=== PATIENT | female | born 1955 | race Caucasian/White ===

== ENCOUNTER 2019-03-11 14:53 | Inpatient (IN) | payer MEDICARE, MEDICAID ==
[~2019-03-11] VITALS: Ht 170.2 cm; Wt 125.9 kg
[~2019-03-11 14:53] MED LIST: ACET-784 PO; ADV250 IH; ARIP10TA8 PO; ARIP5TAB8 PO; AUD NEB; BISA10SU11 PR; HEPAR25KIV SQ; HYDR-3965 PO; INSNOV SQ; LISI-661 PO; LOPE2 PO; METF-960 PO; MOM30 PO; MONT10TA21 PO; NICO14T TD; OXCA300T29 PO; PANT40TA25 PO; TOLT4CAP33 PO; ZIPR80CA2 PO; ZOLP5 PO
[2019-03-11 16:15] LABS: GLUCOSE,POINT OF CARE 250 MG/DL (70-110)
[2019-03-11] MEDS ORDERED: ASPIRIN 325 MG TABLET PO ONE (17:30)
[2019-03-11] MEDS ORDERED: ALBUTEROL SULFATE 2.5 MG/0.5 ML NEB SOLUTION NEB ONE (17:30)
[2019-03-11] MEDS ORDERED: IPRATROPIUM BROMIDE 0.5 MG/2.5 ML NEB SOLUTION NEB ONE (17:30)
[2019-03-11] MEDS ORDERED: CefTRIAXone 1 GM/DEXTROSE 50 ML IV ONE (17:30)
[2019-03-11 18:24] LABS: BASOPHILS % (AUTO) 0.6 % (0.0-2.0); EOSINOPHILS % (AUTO) 0.9 % (1.0-6.0); HEMATOCRIT 38.3 % (36-46); HEMOGLOBIN 12.5 g/dL (12.0-16.0); LYMPHOCYTES # (AUTO) 2.2 K/uL (1.0-4.8); MEAN CORPUSCULAR HEMOGLOBIN 25.4 pg (26.0-34.0); MEAN CORPUSCULAR HGB CONC 32.7 G/dL (31.0-37.0); MEAN CORPUSCULAR VOLUME 78 fL (80-100); MONOCYTES # (AUTO) 0.5 K/uL (0.1-1.0); MONOCYTES % (AUTO) 5.1 % (2.0-9.0); NEUTROPHILS # (AUTO) 7.5 K/uL (1.8-7.7); NEUTROPHILS % (AUTO) 72.4 % (40.0-70.0); PLATELET COUNT (AUTO) 264 K/uL (150-450); RED BLOOD CELL COUNT(AUTO) 4.93 MIL/uL (4.00-5.20); RED CELL DISTRIBUTION WIDTH 17.3 % (11.5-14.5)
[2019-03-11 18:33] LABS: CARBON DIOXIDE 26 mmol/L (22-29); CHLORIDE 103 mmol/L (98-107); POTASSIUM 4.3 mmol/L (3.5-5.1); SODIUM SERUM 139 mmol/L (136-145)
[2019-03-11 18:34] LABS: ANION GAP 10 mmol/L (8-16); CREATININE 1.13 mg/dL (0.60-1.30); GLOMERULAR FILTR. RATE CALC 48 mL/min (>60); GLUCOSE,RANDOM 178 mg/dL (70-110); UREA NITROGEN, BLOOD 17 mg/dL (7-18)
[2019-03-11 18:39] LABS: ALANINE AMINOTRANSFERASE 20 U/L (12-78); ALBUMIN 3.3 g/dL (3.4-5.0); ALKALINE PHOSPHATASE 80 U/L (46-116); ASPARTATE AMINOTRANSFERASE 10 U/L (15-37); BILIRUBIN,TOTAL 0.3 mg/dL (0.1-1.0); TOTAL PROTEIN, SERUM 7.3 g/dL (6.4-8.2)
[2019-03-11 18:42] LABS: B-TYPE NATRIURETIC PEPTIDE 23 pg/mL (0-100)
[2019-03-11 19:13] LABS: LACTIC ACID 2.6 mmol/L (0.4-2.0)
[2019-03-11 22:36] VITALS: BP 129/65
[2019-03-12 06:20] VITALS: BP 129/68
[2019-03-12 07:52] VITALS: BP 124/75
[2019-03-12] MEDS ORDERED: CefTRIAXone 1 GM/DEXTROSE 50 ML IV SCH (08:00)
[2019-03-12] MEDS: ALBUTEROL SULFATE 2.5 MG/0.5 ML NEB SOLUTION NEB SCH ×3 (08:00→20:00)
[2019-03-12] MEDS ORDERED: HYDROCODONE/ACETAMINOPHEN 5-325 MG TABLET PO PRN (08:00)
[2019-03-12] MEDS ORDERED: ACETAMINOPHEN 325 MG TABLET PO PRN (08:00)
[2019-03-12] MEDS ORDERED: ALBUTEROL SULFATE 2.5 MG/0.5 ML NEB SOLUTION NEB PRN (08:00)
[2019-03-12] MEDS ORDERED: ZOLPIDEM TARTRATE 5 MG TABLET PO PRN (08:00)
[2019-03-12] MEDS ORDERED: DEXTROSE 50%-WATER 25 GM/50 ML SYRINGE IVP PRN (08:00)
[2019-03-12] MEDS ORDERED: 0.9% SODIUM CHLORIDE 10 ML SYRINGE IVP PRN (08:00)
[2019-03-12] MEDS ORDERED: IPRATROPIUM BROMIDE 0.5 MG/2.5 ML NEB SOLUTION NEB PRN (08:00)
[2019-03-12] MEDS ORDERED: ONDANSETRON HCL 4 MG/2 ML VIAL IVP PRN (08:00)
[2019-03-12] MEDS ORDERED: 0.9% SODIUM CHLORIDE 5 ML NEB SOLUTION NEB ONE ×3 (08:38→19:17)
[2019-03-12] MEDS ORDERED: MethylPREDNISolone SOD SUCC 40 MG/ML VIAL IVP SCH (09:00)
[2019-03-12] MEDS ORDERED: SODIUM CHLORIDE 0.9% 500 ML IV ONE (09:15)
[2019-03-12] MEDS: DOCUSATE SODIUM 100 MG CAPSULE PO SCH ×2 (09:24→20:47)
[2019-03-12] MEDS: LISINOPRIL 10 MG TABLET PO SCH (09:24)
[2019-03-12] MEDS: MetFORMIN HCL 500 MG TABLET PO SCH ×2 (09:24→16:55)
[2019-03-12] MEDS: PANTOPRAZOLE SODIUM 40 MG DR TABLET PO SCH (09:24)
[2019-03-12] MEDS: ENOXAPARIN SODIUM 40 MG/0.4 ML PF SYRINGE SQ SCH (09:24)
[2019-03-12] MEDS: FLUTICASONE/VILANTEROL 200-25 MCG/INH INHALER [14] IH SCH (09:25)
[2019-03-12] MEDS: ARIPiprazole 5 MG TABLET PO SCH (09:25)
[2019-03-12] MEDS: OXcarbazepine 300 MG TABLET PO SCH ×3 (09:25→20:47)
[2019-03-12] MEDS: ZIPRASIDONE HCL 80 MG CAPSULE PO SCH ×2 (09:25→16:55)
[2019-03-12] MEDS: AZITHROMYCIN 500 MG/NS 250 ML IV SCH (10:15)
[2019-03-12 11:12] VITALS: BP 117/66
[2019-03-12] MEDS: INSULIN LISPRO 100 UNITS/ML SQ PRN ×2 (11:38→16:59)
[2019-03-12] MEDS ORDERED: HYDR-4061 PO (14:19)
[2019-03-12] MEDS ORDERED: HEPA500018 SQ (14:19)
[2019-03-12] MEDS ORDERED: NICO-703 TD (14:19)
[2019-03-12 16:19] VITALS: BP 132/58
[2019-03-12] MEDS: MONTELUKAST SODIUM 10 MG TABLET PO SCH (16:55)
[2019-03-12 19:42] VITALS: BP 142/75
[2019-03-12] MEDS ORDERED: ARIPiprazole 10 MG TABLET PO SCH (21:00)
[2019-03-12 22:46] LABS: GLUCOMETER DEV NAME(LOC) 5N.2; GLUCOSE,POINT OF CARE 284 MG/DL (70-110)
[2019-03-12 22:46] LABS: GLUCOMETER DEV NAME(LOC) 5N.2; GLUCOSE,POINT OF CARE 382 MG/DL (70-110)
[2019-03-13] VITALS (7 sets, daily range): BP systolic 100–133; BP diastolic 41–75
[2019-03-13] MEDS: ALBUTEROL SULFATE 2.5 MG/0.5 ML NEB SOLUTION NEB SCH ×4 (02:00→20:00)
[2019-03-13 02:15] LABS: GLUCOMETER DEV NAME(LOC) 5N.1; GLUCOSE,POINT OF CARE 304 MG/DL (70-110)
[2019-03-13] MEDS: INSULIN LISPRO 100 UNITS/ML SQ PRN ×4 (06:04→22:00)
[2019-03-13 06:47] LABS: BASOPHILS % (AUTO) 0.2 % (0.0-2.0); EOSINOPHILS % (AUTO) 0.3 % (1.0-6.0); HEMATOCRIT 35.3 % (36-46); HEMOGLOBIN 11.7 g/dL (12.0-16.0); LYMPHOCYTES % (AUTO) 16.8 % (22.0-44.0); MEAN CORPUSCULAR HEMOGLOBIN 25.4 pg (26.0-34.0); MEAN CORPUSCULAR HGB CONC 33.1 G/dL (31.0-37.0); MEAN CORPUSCULAR VOLUME 77 fL (80-100); MONOCYTES # (AUTO) 0.6 K/uL (0.1-1.0); MONOCYTES % (AUTO) 5.2 % (2.0-9.0); NEUTROPHILS # (AUTO) 9.4 K/uL (1.8-7.7); NEUTROPHILS % (AUTO) 77.5 % (40.0-70.0); PLATELET COUNT (AUTO) 264 K/uL (150-450); RED BLOOD CELL COUNT(AUTO) 4.61 MIL/uL (4.00-5.20); RED CELL DISTRIBUTION WIDTH 17.1 % (11.5-14.5)
[2019-03-13 07:04] LABS: ANION GAP 10 mmol/L (8-16); CALCIUM, TOTAL 9.3 mg/dL (8.8-10.5); CARBON DIOXIDE 24 mmol/L (22-29); CHLORIDE 102 mmol/L (98-107); CREATININE 0.86 mg/dL (0.60-1.30); GLOMERULAR FILTR. RATE CALC > 60 mL/min (>60); GLUCOSE,RANDOM 147 mg/dL (70-110); POTASSIUM 4.3 mmol/L (3.5-5.1); SODIUM SERUM 136 mmol/L (136-145); UREA NITROGEN, BLOOD 16 mg/dL (7-18)
[2019-03-13] MEDS ORDERED: 0.9% SODIUM CHLORIDE 5 ML NEB SOLUTION NEB ONE (08:51)
[2019-03-13] MEDS: PANTOPRAZOLE SODIUM 40 MG DR TABLET PO SCH (08:51)
[2019-03-13] MEDS: ZIPRASIDONE HCL 80 MG CAPSULE PO SCH ×2 (08:51→17:08)
[2019-03-13] MEDS: ARIPiprazole 5 MG TABLET PO SCH (08:53)
[2019-03-13] MEDS: MetFORMIN HCL 500 MG TABLET PO SCH ×2 (08:53→17:08)
[2019-03-13] MEDS: LISINOPRIL 10 MG TABLET PO SCH (08:54)
[2019-03-13] MEDS: OXcarbazepine 300 MG TABLET PO SCH ×3 (08:54→21:15)
[2019-03-13] MEDS: ENOXAPARIN SODIUM 40 MG/0.4 ML PF SYRINGE SQ SCH (08:55)
[2019-03-13] MEDS: DOCUSATE SODIUM 100 MG CAPSULE PO SCH ×2 (08:55→21:15)
[2019-03-13] MEDS: FLUTICASONE/VILANTEROL 200-25 MCG/INH INHALER [14] IH SCH (08:55)
[2019-03-13] MEDS: AZITHROMYCIN 500 MG/NS 250 ML IV SCH (09:07)
[2019-03-13] MEDS ORDERED: ARIPiprazole 15 MG TABLET PO ONE (10:45)
[2019-03-13 14:46] LABS: GLUCOMETER DEV NAME(LOC) 5N.2; GLUCOSE,POINT OF CARE 158 MG/DL (70-110)
[2019-03-13] MEDS: MONTELUKAST SODIUM 10 MG TABLET PO SCH (17:08)
[2019-03-14] MEDS: ALBUTEROL SULFATE 2.5 MG/0.5 ML NEB SOLUTION NEB SCH ×3 (02:00→14:00)
[2019-03-14 05:25] VITALS: BP 146/83
[2019-03-14 06:17] LABS: GLUCOMETER DEV NAME(LOC) 5S.1; GLUCOSE,POINT OF CARE 207 MG/DL (70-110)
[2019-03-14 07:36] LABS: GLUCOMETER DEV NAME(LOC) 5S.2A; GLUCOSE,POINT OF CARE 300 MG/DL (70-110)
[2019-03-14 07:36] LABS: GLUCOMETER DEV NAME(LOC) 5S.2A; GLUCOSE,POINT OF CARE 150 MG/DL (70-110)
[2019-03-14] MEDS ORDERED: MetFORMIN HCL 500 MG TABLET PO SCH (08:00)
[2019-03-14] MEDS: AZITHROMYCIN 500 MG/NS 250 ML IV SCH (08:00)
[2019-03-14 08:12] VITALS: BP 139/70
[2019-03-14] MEDS ORDERED: ARIPiprazole 10 MG TABLET PO SCH (09:00)
[2019-03-14] MEDS: ENOXAPARIN SODIUM 40 MG/0.4 ML PF SYRINGE SQ SCH (09:33)
[2019-03-14] MEDS: FLUTICASONE/VILANTEROL 200-25 MCG/INH INHALER [14] IH SCH (09:34)
[2019-03-14] MEDS: OXcarbazepine 300 MG TABLET PO SCH (09:34)
[2019-03-14] MEDS: LISINOPRIL 10 MG TABLET PO SCH (09:34)
[2019-03-14] MEDS: DOCUSATE SODIUM 100 MG CAPSULE PO SCH (09:35)
[2019-03-14] MEDS: PANTOPRAZOLE SODIUM 40 MG DR TABLET PO SCH (09:35)
[2019-03-14] MEDS: ZIPRASIDONE HCL 80 MG CAPSULE PO SCH (09:36)
[2019-03-14] MEDS: INSULIN LISPRO 100 UNITS/ML SQ PRN (12:05)
[2019-03-14 13:37] LABS: GLUCOMETER DEV NAME(LOC) 5N.1; GLUCOSE,POINT OF CARE 271 MG/DL (70-110)
[2019-03-14 13:37] LABS: GLUCOMETER DEV NAME(LOC) 5N.1; GLUCOSE,POINT OF CARE 137 MG/DL (70-110)
== END 2019-03-14 15:10 | DRG 202 ==
LOC: EMS 14:54 → 5S 19:57
PROVIDERS: ADMIT Internal Medicine; ATTEND Internal Medicine
DX: J20.9 Acute bronchitis, unspecified (principal); J44.1 Chronic obstructive pulmonary disease with (acute) exacerbation; N39.0 Urinary tract infection, site not specified; J44.0 Chronic obstructive pulmonary disease with (acute) lower respiratory infection; Z68.41 Body mass index [BMI] 40.0-44.9, adult; F25.1 Schizoaffective disorder, depressive type; E66.01 Morbid (severe) obesity due to excess calories; D64.9 Anemia, unspecified; E11.65 Type 2 diabetes mellitus with hyperglycemia; F17.210 Nicotine dependence, cigarettes, uncomplicated; I10 Essential (primary) hypertension; K58.9 Irritable bowel syndrome, unspecified; Z83.3 Family history of diabetes mellitus; Z88.1 Allergy status to other antibiotic agents; Z88.8 Allergy status to other drugs, medicaments and biological substances; Z79.899 Other long term (current) drug therapy; Z59.0 Homelessness
CPT/HCPCS: 83605; 87040; 93005; 93306; 94640; 96365; 96375; 97162; 97530; J0456; J0696; J1650; J2920; J7040

== ENCOUNTER 2019-07-01 12:44 | Emergency (ER) | payer MEDICARE, MEDICAID ==
[~2019-07-01] VITALS: Ht 172.7 cm; Wt 129.6 kg
[~2019-07-01 12:44] MED LIST changes: +HEPA500018 SQ; -HEPAR25KIV SQ; -HYDR-3965 PO; +HYDR-4061 PO; +NICO-703 TD; -NICO14T TD; +TOLT4CAP PO; -TOLT4CAP33 PO
[2019-07-01] MEDS ORDERED: BACITRACIN 0.9 GM PACKET OINTMENT TP ONE (14:00)
[2019-07-01 14:03] LABS: BASOPHILS % (AUTO) 0.3 % (0.0-2.0); EOSINOPHILS % (AUTO) 0.4 % (1.0-6.0); HEMATOCRIT 36.3 % (36-46); HEMOGLOBIN 11.8 g/dL (12.0-16.0); LYMPHOCYTES # (AUTO) 0.9 K/uL (1.0-4.8); LYMPHOCYTES % (AUTO) 10.1 % (22.0-44.0); MEAN CORPUSCULAR HEMOGLOBIN 25.4 pg (26.0-34.0); MEAN CORPUSCULAR HGB CONC 32.5 G/dL (31.0-37.0); MEAN CORPUSCULAR VOLUME 78 fL (80-100); MONOCYTES # (AUTO) 0.5 K/uL (0.1-1.0); MONOCYTES % (AUTO) 5.2 % (2.0-9.0); NEUTROPHILS # (AUTO) 7.3 K/uL (1.8-7.7); PLATELET COUNT (AUTO) 257 K/uL (150-450); RED BLOOD CELL COUNT(AUTO) 4.65 MIL/uL (4.00-5.20); RED CELL DISTRIBUTION WIDTH 17.3 % (11.5-14.5)
[2019-07-01 14:11] LABS: CALCIUM, TOTAL 9.1 mg/dL (8.8-10.5); CREATININE 1.21 mg/dL (0.60-1.30); POTASSIUM 4.8 mmol/L (3.5-5.1)
[2019-07-01 15:24] VITALS: BP 110/49
== END 2019-07-01 17:05 | disposition home or self-care (01) ==
LOC: EMS 12:47
DX: S02.2XXA Fracture of nasal bones, initial encounter for closed fracture (principal); E11.65 Type 2 diabetes mellitus with hyperglycemia; J45.909 Unspecified asthma, uncomplicated; F31.9 Bipolar disorder, unspecified; F20.9 Schizophrenia, unspecified; F17.210 Nicotine dependence, cigarettes, uncomplicated; Z88.8 Allergy status to other drugs, medicaments and biological substances; Z79.4 Long term (current) use of insulin; Z79.899 Other long term (current) drug therapy; W19.XXXA Unspecified fall, initial encounter; Y93.89 Activity, other specified; Y92.89 Other specified places as the place of occurrence of the external cause; Y99.8 Other external cause status
CPT/HCPCS: 70450; 99406